=== PATIENT | male | born 1985 ===

== ENCOUNTER 2018-07-18 14:44 | Observation (INO) ==
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
[2018-07-18 15:46] LABS: Basophils # 0.1 K/mcL (0.0-0.2); Basophils % 0.9 %; Eosinophils # 0.2 K/mcL (0.0-0.6); Eosinophils % 1.8 %; Hematocrit 35.8 % (37.5-50.1); Hemoglobin 12.4 g/dL (12.9-16.9); Immature Granulocytes % 0.4 % (0-4); Lymphocytes # 2.2 K/mcL (0.6-4.6); Lymphocytes % 20.5 %; Mean Corpuscular HGB Conc 34.6 g/dL (31.6-35.5); Mean Corpuscular Hemoglobin 29.7 pg (28.0-33.3); Mean Corpuscular Volume 85.6 fL (83.0-100.0); Mean Platelet Volume 9.6 fL (9.4-12.4); Monocytes % 9.9 %; Platelet Count 195 K/mcL (140-400); Red Blood Count 4.18 M/mcL (4.19-5.50); Red Cell Distribution Width 12.4 % (11.5-14.5); Segmented Neutrophils % 66.5 %
[2018-07-18 15:52] LABS: Bilirubin,Urine Small (Negative); Blood,Urine Small (Negative); Clarity,Urine Clear (Clear); Color,Urine Dark Yellow (Yellow); Glucose,Urine (UA) Normal (Normal); Ketones,Urine Trace mg/dL (Negative); Leukocyte Esterase,Urine Negative (Negative); Nitrite,Urine Negative (Negative); PH,Urine 5.5 pH Units (5.0-8.0); Protein,Urine 30 mg/dL (Neg-Trace); Specific Gravity,Urine 1.029 (1.010-1.025); Urobilinogen,Urine Normal (Normal)
[2018-07-18 15:54] LABS: Bacteria,Urine None Seen per hpf (None-Few); Hyaline Casts,Urine None Seen per lpf (None-Few); RBC,Urine 15-30 per hpf (0-3); Squamous Epithelial Cell,Urine Moderate per lpf (None-Few); WBC,Urine 0-3 per hpf (0-3)
[2018-07-18 16:04] LABS: Amphetamine Screen,Urine Positive ng/mL (Cutoff=1000); Barbiturate Screen,Urine Negative ng/mL (Cutoff=200); Benzodiazepines Screen,Urine Positive ng/mL (Cutoff=200); Cannabinoid Screen,Urine Negative ng/mL (Cutoff = 50); Cocaine Screen,Urine Negative ng/mL (Cutoff= 300); Opiate Screen,Urine Positive ng/mL (Cutoff=300); Phencyclidine Screen,Urine Negative ng/mL (Cutoff=25)
[2018-07-18 16:06] LABS: Acetaminophen < 10 mcg/mL (10-20); BUN/Creatinine Ratio 21 (6-26); Blood Urea Nitrogen 23 mg/dL (6-20); Calcium 8.5 mg/dL (8.6-10.3); Carbon Dioxide 24 mEq/L (23-29); Chloride 106 mEq/L (98-107); Ethanol < 10 mg/dL (Less than 10); Glucose 133 mg/dL (70-105); Osmolality,Calculated 292 (280-300); Potassium 3.3 mEq/L (3.5-5.1); Salicylate < 2.5 mg/dL (15.0-30.0); Sodium 138 mEq/L (136-145); eGFR For Non-African Americans > 60 (> 60)
[2018-07-18] MEDS ORDERED: Potassium Chloride Elixir 20 MEQ/15 ML UDC PO ONE (19:43)
[2018-07-18] MEDS ORDERED: *HR* LORazepam 2 MG/ML VIAL IVP PRN (19:47)
[2018-07-18] MEDS ORDERED: Haloperidol Lactate 5 MG/ML VIAL IVP PRN (19:49)
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
[2018-07-18] MEDS ORDERED: Naloxone 0.4 MG/ML INJ IVP PRN (20:20)
[2018-07-18] MEDS ORDERED: Acetaminophen 325 MG TABLET PO PRN (20:20)
[2018-07-18] MEDS ORDERED: *HR* LORazepam 2 MG/ML VIAL IVP ONE (21:06)
[2018-07-18] MEDS ORDERED: 0.9 % Sodium Chloride 1,000 ML IVC ONE (21:06)
[2018-07-19] MEDS: Ringers Solution, Lactated 1,000 ML IVC SCH ×2 (00:34→09:21)
[2018-07-19] MEDS: *HR* Heparin 5,000 UNIT/ML VIAL SQ SCH ×4 (00:50→22:47)
[2018-07-19 07:18] LABS: Basophils # 0.1 K/mcL (0.0-0.2); Basophils % 1.1 %; Eosinophils # 0.2 K/mcL (0.0-0.6); Eosinophils % 4.5 %; Hematocrit 35.3 % (37.5-50.1); Hemoglobin 12.5 g/dL (12.9-16.9); Immature Granulocytes % 0.4 % (0-4); Lymphocytes % 22.9 %; Mean Corpuscular HGB Conc 35.4 g/dL (31.6-35.5); Mean Corpuscular Hemoglobin 30.5 pg (28.0-33.3); Mean Corpuscular Volume 86.1 fL (83.0-100.0); Mean Platelet Volume 10.3 fL (9.4-12.4); Monocytes # 0.4 K/mcL (0.0-1.3); Monocytes % 9.6 %; Neutrophils # 2.8 K/mcL (1.6-8.9); Platelet Count 140 K/mcL (140-400); Red Cell Distribution Width 12.2 % (11.5-14.5); Segmented Neutrophils % 61.5 %
[2018-07-19 07:39] LABS: BUN/Creatinine Ratio 19 (6-26); Blood Urea Nitrogen 16 mg/dL (6-20); Calcium 7.8 mg/dL (8.6-10.3); Carbon Dioxide 27 mEq/L (23-29); Chloride 103 mEq/L (98-107); Glucose 125 mg/dL (70-105); Osmolality,Calculated 287 (280-300); Potassium 3.1 mEq/L (3.5-5.1); Sodium 137 mEq/L (136-145); eGFR For Non-African Americans > 60 (> 60)
[2018-07-19 08:12] LABS: Platelet Estimate Normal (Normal)
--- NOTE | 2018-07-19 10:50 | Internal Med Progress Note ---
Hospitalist Progress Note - Encounter Date of Encounter: 07/19/18 Time of Encounter: 10:50 - Subjective Interval History: No acute events overnight - Exam Vitals: Temp Pulse Resp BP Pulse Ox 98.9 F 66 18 115/74 99 07/19/18 08:00 07/19/18 08:00 07/19/18 08:00 07/19/18 08:00 07/19/18 08:00 Exam: Gen - Awake, alert, oriented x 3, drowsy HEENT - NCAT, PERRLA, EOMI, hearing grossly intact, oropharynx benign CV - RRR, normal S1 and S2, no M/R/G, no BLE edema Resp - CTAB GI - Soft, NT/ND, no masses, normal bowel sounds, Skin - Warm, dry, no rashes/lesions/ulcers Psych - Normal mood and affect, no depression or anxiety. - Assessment and Plan (1) Altered mental status Current Visit: Yes Status: Acute Assessment and Plan: Altered menatal status/ Acute metabolic encephalopathy likely secondary to drug intoxication vs underlying psych disorder such as schizophrenia Continue sitter and suicide precautions. Head CT was negative for any acute intracranial abnormality Iv fluids and supportive management. Psych consulted and appreciate recs (2) Hypokalemia Current Visit: Yes Status: Acute Assessment and Plan: Replaced (3) Psychosis Current Visit: Yes Status: Acute Assessment and Plan: See #1. Psych recs appreciated (4) Hypocalcemia Current Visit: Yes Status: Acute Assessment and Plan: Check albumin levels, will replace calcium if corrected calcium is low DVT Prophylaxis: Heparin sc - Time Spent with Patient Total time spent is greater than 50% in coordination of care (as documented) at patient's floor/unit and/or counseling patient: Internal Medicine: Result - Labs CBC & Chem 7: 07/19/18 06:25 07/19/18 06:25 Labs: Short CBC 07/19/18 Range/Units 06:25 WBC 4.5 D (4.3-11.1) K/mcL Hgb 12.5 L (12.9-16.9) g/dL Hct 35.3 L (37.5-50.1) % Plt Count 140 (140-400) K/mcL Neutrophils # 2.8 (1.6-8.9) K/mcL BMP 07/19/18 06:25 Sodium 137 Potassium 3.1 L Chloride 103 Carbon Dioxide 27 BUN 16 Creatinine 0.84 Glucose 125 H Calcium 7.8 L Consult Discharge Plan - Plan Referrals: NONE,PCP [Primary Care Provider] - (1) Altered mental status Qualifiers: Altered mental status type: disorientation Qualified Code(s): R41.0 - Disorientation, unspecified (3) Psychosis Qualifiers: Psychosis type: unspecified psychosis type Qualified Code(s): F29 - Unspecified psychosis not due to a substance or known physiological condition
[2018-07-19] MEDS ORDERED: Potassium Chloride Elixir 20 MEQ/15 ML UDC PO SCH (11:00)
[2018-07-19] MEDS ORDERED: Potassium Chloride 40 MEQ, Lidocaine 1% 2 ML in D5% in Water 500 ML IVPB ONE (11:42)
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
[2018-07-19 15:00] LABS: Alanine Aminotransferase 90 Units/L (7-52); Albumin 3.8 g/dL (3.5-5.7); Albumin/Globulin Ratio 1.7 (1.1-2.2); Alkaline Phosphatase 48 Units/L (34-104); Aspartate Amino Transferase 203 Units/L (13-39); Bilirubin,Direct 0.4 mg/dL (0.0-0.2); Bilirubin,Indirect 1.2 mg/dL (0.0-1.2); Bilirubin,Total 1.6 mg/dL (0.3-1.0); Globulin 2.3 g/dL (2.4-3.5); Total Protein 6.1 g/dL (6.4-8.9)
[2018-07-19] MEDS: risperiDONE 1 MG TABLET PO SCH (22:47)
[2018-07-20] MEDS: *HR* Heparin 5,000 UNIT/ML VIAL SQ SCH ×2 (05:05→14:02)
[2018-07-20 05:50] LABS: Eosinophils # 0.2 K/mcL (0.0-0.6); Eosinophils % 5.7 %; Hematocrit 36.6 % (37.5-50.1); Hemoglobin 12.4 g/dL (12.9-16.9); Immature Granulocytes % 0.3 % (0-4); Lymphocytes % 30.3 %; Mean Corpuscular HGB Conc 33.9 g/dL (31.6-35.5); Mean Corpuscular Hemoglobin 29.4 pg (28.0-33.3); Mean Corpuscular Volume 86.7 fL (83.0-100.0); Mean Platelet Volume 10.1 fL (9.4-12.4); Monocytes # 0.2 K/mcL (0.0-1.3); Neutrophils # 1.8 K/mcL (1.6-8.9); Platelet Count 146 K/mcL (140-400); Red Blood Count 4.22 M/mcL (4.19-5.50); Red Cell Distribution Width 12.5 % (11.5-14.5); Segmented Neutrophils % 55.7 %
[2018-07-20 06:12] LABS: BUN/Creatinine Ratio 12 (6-26); Blood Urea Nitrogen 9 mg/dL (6-20); Calcium 7.9 mg/dL (8.6-10.3); Carbon Dioxide 31 mEq/L (23-29); Chloride 105 mEq/L (98-107); Glucose 129 mg/dL (70-105); Osmolality,Calculated 292 (280-300); Phosphorous 2.5 mg/dL (2.7-4.5); Potassium 3.3 mEq/L (3.5-5.1); Sodium 141 mEq/L (136-145); eGFR For Non-African Americans > 60 (> 60)
[2018-07-20] MEDS: risperiDONE 1 MG TABLET PO SCH (08:18)
--- NOTE | 2018-07-20 11:01 | Internal Med Progress Note ---
Hospitalist Progress Note - Encounter Date of Encounter: 07/20/18 Time of Encounter: 11:00 - Subjective Interval History: No acute events overnight - Exam Vitals: Temp Pulse Resp BP Pulse Ox 98.9 F 63 18 119/73 99 07/20/18 07:00 07/20/18 07:00 07/20/18 07:00 07/20/18 07:00 07/20/18 07:00 Exam: Gen - Awake, alert, oriented x 3, drowsy HEENT - NCAT, PERRLA, EOMI, hearing grossly intact, oropharynx benign CV - RRR, normal S1 and S2, no M/R/G, no BLE edema Resp - CTAB GI - Soft, NT/ND, no masses, normal bowel sounds, Skin - Warm, dry, no rashes/lesions/ulcers Psych - Normal mood and affect, no depression or anxiety. - Assessment and Plan (1) Altered mental status Current Visit: Yes Status: Acute Assessment and Plan: Altered menatal status/ Acute metabolic encephalopathy likely secondary to drug intoxication vs underlying psych disorder such as schizophrenia Head CT was negative for any acute intracranial abnormality Iv fluids and supportive management. Seen by psych whose impression is that symptoms are all drug induced. Started on risperidone and can be discharged once medically stable per psych recs (2) Hypokalemia Current Visit: Yes Status: Acute Assessment and Plan: Replaced (3) Psychosis Current Visit: Yes Status: Acute Assessment and Plan: See #1. Psych recs appreciated (4) Hypocalcemia Current Visit: Yes Status: Acute Assessment and Plan: Check albumin levels, will replace calcium if corrected calcium is low DVT Prophylaxis: Heparin sc - Time Spent with Patient Total time spent is greater than 50% in coordination of care (as documented) at patient's floor/unit and/or counseling patient: Internal Medicine: Result - Labs CBC & Chem 7: 07/20/18 04:30 07/20/18 04:30 Labs: Short CBC 07/20/18 Range/Units 04:30 WBC 3.1 L (4.3-11.1) K/mcL Hgb 12.4 L (12.9-16.9) g/dL Hct 36.6 L (37.5-50.1) % Plt Count 146 (140-400) K/mcL Neutrophils # 1.8 (1.6-8.9) K/mcL BMP 07/20/18 04:30 Sodium 141 Potassium 3.3 L Chloride 105 Carbon Dioxide 31 H BUN 9 Creatinine 0.73 Glucose 129 H Calcium 7.9 L Consult Discharge Plan - Plan Instructions: Hypokalemia (DC), Methamphetamine Abuse (DC), Hypocalcemia (DC) Additional Instructions: Follow-up appointments: If there is not an appointment listed below, please call your physician and schedule a follow-up appointment. If you have congestive heart failure and your symptoms return, make an appointment with your physician. Medication List: Carry an up to date list of medications you are taking at all time. We have given you an updated medication list including any new medications that you have been prescribed. Please provide that list to your primary provider Symptoms: If your condition changes or you experience any of the following symptoms, notify your physician immediately: Unusual or worsening pain, fever, persistent nausea and vomiting, bleeding, increase in swelling (especially in your legs), sudden weight gain, extreme dizziness, chest pain, increased drainage or redness from a wound or incision. Go to the emergency department if you experience a problem with breathing. Weights: If you have a history of swelling or shortness of breath, weigh yourself daily and notify your physician if you have a weight gain of two or more pounds in one day or 5 or more pounds in a week. If you experience any of the warning signs for stroke: Sudden numbness or weakness of the face, arm or leg; especially on one side of the body, sudden confusion, trouble speaking or understanding, sudden trouble seeing in one or both eyes, sudden trouble walking, dizziness, loss of balance or coordination, sudden sever headache with no cause; Call 911 or go to the emergency room. Stroke is a medical emergency. Some risk factors for stroke: Age, cigarette smoking, diabetes, excessive alcohol consumption, family history , high blood pressure, overweight, physical inactivity, prior stroke, heart attack, diagnosis of carotid artery stenosis or other artery disease. If you smoke, STOP: Smoking or tobacco use significantly increases your risk of heart and lung disease. Your chance of disease greatly increases if you continue to smoke. For more information, call the [place] tobacco quit line for smoking cessation QUIT-NOW ( ) Referrals: NONE,PCP [Primary Care Provider] - Prescriptions: risperiDONE [RisperDAL] 1 mg PO BID #60 tablet (1) Altered mental status Qualifiers: Altered mental status type: disorientation Qualified Code(s): R41.0 - Disorientation, unspecified (3) Psychosis Qualifiers: Psychosis type: unspecified psychosis type Qualified Code(s): F29 - Unspecified psychosis not due to a substance or known physiological condition
[2018-07-20] MEDS: Potassium Chloride Elixir 20 MEQ/15 ML UDC PO SCH ×2 (11:23→13:59)
[2018-07-20 11:32] VITALS: BP 112/72
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
--- NOTE | 2018-07-20 12:13 | Discharge Summary ---
Orders not resulted at time of discharge: Pending orders 07/21/18 04:00 Basic Metabolic Panel AM 0400 CBC [Complete Blood Count] [HEME] AM 0400 Magnesium AM 0400 Phosphorous AM 0400 07/22/18 04:00 Basic Metabolic Panel AM 0400 CBC [Complete Blood Count] [HEME] AM 0400 Magnesium AM 0400 Phosphorous AM 0400 07/23/18 04:00 Basic Metabolic Panel AM 0400 CBC [Complete Blood Count] [HEME] AM 0400 Magnesium AM 0400 Phosphorous AM 0400 07/24/18 04:00 Basic Metabolic Panel AM 0400 CBC [Complete Blood Count] [HEME] AM 0400 Magnesium AM 0400 Phosphorous AM 0400 07/25/18 04:00 Basic Metabolic Panel AM 0400 CBC [Complete Blood Count] [HEME] AM 0400 Magnesium AM 0400 Phosphorous AM 0400 Date of Encounter: 07/20/18 Time of Encounter: 12:00 - Discharge Diagnosis (1) Altered mental status Priority: Primary Status: Acute Assessment and Plan: 32 year old male brought to ED by EMS after found wandering. He admitted to homicidal ideation triggered by people lying to him. He denied hallucinations. He denies taking any medications or drugs today. He describes pain in hips, legs and feet. He admits to abdominal pain but can not describe - denies vomiting. Sitter outside room reports he has been shaking back & forth on bed then pacing room. Per chart review he has a history of anxiety and depression for which he has not been taking his medication. He was recently released form care home. He admitted to previous provider that he injected suboxone. In ED, UDS positive for benzo, opiates and amphetamines. He was assessed with altered mental status/ acute metabolic encephalopathy likely secondary to drug intoxication. Head CT was negative for any acute intracranial abnormality. he was seen by psychiatry who determined his symptoms were all drug induced. He was started on risperidone BID by psychoiatry for psychosis. He was also noted to be hypokalemic and had a borderline low corrected calcium which were replaced prior to discharge. He improved with Iv fluids and supportive care and was discharged in a stable condition Qualifiers: Altered mental status type: disorientation Qualified Code(s): R41.0 - Disorientation, unspecified (2) Hypokalemia Priority: Secondary Status: Acute (3) Psychosis Priority: Secondary Status: Acute Qualifiers: Psychosis type: unspecified psychosis type Qualified Code(s): F29 - Unspecified psychosis not due to a substance or known physiological condition (4) Hypocalcemia Priority: Secondary Status: Acute Hospital course: Mr. Tran is a 32 year old male - Time Spent with Patient Total time spent providing and/or coordinating discharge services: - Discharge Medications Prescriptions: risperiDONE [RisperDAL] 1 mg PO BID #60 tablet Home Medications: risperiDONE [RisperDAL] 1 mg PO BID #60 tablet 07/20/18 [Rx] Allergies/Adverse Reactions: 3 Allergy/AdvReac Type Severity Reaction Status Date / Time No Known Allergies Allergy Verified 08/26/16 11:06 Date of admission: 07/18/18 19:05 Primary care physician: PCP NONE Consults: 07/18/18 20:24 Consult to Psychiatry [CONS] Routine Consulting Provider: Psychiatry Aisha Reason consult: Altered mental status Samson slip on chart Psychosis Samson Slip initiated date and time: [id number] Call Completed: No 07/19/18 00:23 Consult to Piano Teacher [CONS] Routine Reason for SW Consult: pt admitted for HI and reports his home life is complicated and he doesnt feel safe there - Constitutional Vitals: Temp Pulse Resp BP Pulse Ox 98.8 F 81 18 112/72 98 07/20/18 11:00 07/20/18 11:00 07/20/18 11:00 07/20/18 11:00 07/20/18 11:00 General appearance: Present: A&O X 1, disheveled, mild distress. Absent: answers questions appropriately Exam: Gen - Awake, alert, oriented x 3, HEENT - NCAT, PERRLA, EOMI, hearing grossly intact, oropharynx benign CV - RRR, normal S1 and S2, no M/R/G, no BLE edema Resp - CTAB GI - Soft, NT/ND, no masses, normal bowel sounds, Skin - Warm, dry, no rashes/lesions/ulcers Psych - Normal mood and affect, no depression or anxiety. - Patient Status Disposition: Home, Self-Care Condition: Good - Discharge Instructions Instructions: Hypokalemia (DC), Methamphetamine Abuse (DC), Hypocalcemia (DC) Follow Up With: NONE,PCP [Primary Care Provider] - Forms: ED Satisfaction Letter Additional Instructions: Follow-up appointments: If there is not an appointment listed below, please call your physician and schedule a follow-up appointment. If you have congestive heart failure and your symptoms return, make an appointment with your physician. Medication List: Carry an up to date list of medications you are taking at all time. We have given you an updated medication list including any new medications that you have been prescribed. Please provide that list to your primary provider Symptoms: If your condition changes or you experience any of the following symptoms, notify your physician immediately: Unusual or worsening pain, fever, persistent nausea and vomiting, bleeding, increase in swelling (especially in your legs), sudden weight gain, extreme dizziness, chest pain, increased drainage or redness from a wound or incision. Go to the emergency department if you experience a problem with breathing. Weights: If you have a history of swelling or shortness of breath, weigh yourself daily and notify your physician if you have a weight gain of two or more pounds in one day or 5 or more pounds in a week. If you experience any of the warning signs for stroke: Sudden numbness or weakness of the face, arm or leg; especially on one side of the body, sudden confusion, trouble speaking or understanding, sudden trouble seeing in one or both eyes, sudden trouble walking, dizziness, loss of balance or coordination, sudden sever headache with no cause; Call 911 or go to the emergency room. Stroke is a medical emergency. Some risk factors for stroke: Age, cigarette smoking, diabetes, excessive alcohol consumption, family history , high blood pressure, overweight, physical inactivity, prior stroke, heart attack, diagnosis of carotid artery stenosis or other artery disease. If you smoke, STOP: Smoking or tobacco use significantly increases your risk of heart and lung disease. Your chance of disease greatly increases if you continue to smoke. For more information, call the [place] tobacco quit line for smoking cessation QUIT-NOW ( )
== END 2018-07-20 16:03 | disposition home or self-care (01) ==
LOC: 3BNU 14:44 → EMEROOARM 14:44 → 3BNU 19:08
PROVIDERS: ADMIT Student in an Organized Health Care Education/Training Program; ATTEND Student in an Organized Health Care Education/Training Program